=== PATIENT | female | born 1995 | race African-American/Black ===

== ENCOUNTER 2016-11-19 21:08 | Emergency (ER) | payer MEDICAID ==
[~2016-11-19] VITALS: Ht 165.1 cm; Wt 95.0 kg
[~2016-11-19 21:08] MED LIST: PRENCAP6 PO; VENTAER INH
[2016-11-19 21:09] VITALS: BP 133/67; PULSE 100; RESP 18; TEMP 98; O2SAT 99
== END 2016-11-19 22:30 | disposition left against medical advice (07) ==
LOC: NED 21:08
DX: M79.1 Myalgia (principal); R50.9 Fever, unspecified; Z53.21 Procedure and treatment not carried out due to patient leaving prior to being seen by health care provider
CPT/HCPCS: 99281